=== PATIENT | male | born 1955 | race Caucasian/White ===

== ENCOUNTER → 2017-08-21 | Outpatient (REF) ==
[2017-08-21 10:09] LABS: THYROID STIMULATING HORMONE 2.86 uIU/mL (0.465-4.680)
== END ==
LOC: ZLAB.WCH 09:22
PROVIDERS: Internal Medicine
DX: Z01.89 Encounter for other specified special examinations (principal)

== ENCOUNTER → 2017-09-28 | Outpatient (REF) ==
[2017-09-28 18:52] LABS: PRE ALBUMIN 27.4 mg/dL (17.6-36.0)
[2017-09-28 19:16] LABS: THYROID STIMULATING HORMONE 2.46 uIU/mL (0.465-4.680)
== END ==
LOC: ZLAB.WCH 18:17
PROVIDERS: Internal Medicine
DX: Z01.89 Encounter for other specified special examinations (principal)

== ENCOUNTER → 2017-10-04 | Outpatient (CLI) | payer SELFPAY | LOC: COL.VAS 09-27 11:15 | DX: Z01.810 Encounter for preprocedural cardiovascular examination (principal); T81.89XA Other complications of procedures, not elsewhere classified, initial encounter; R06.00 Dyspnea, unspecified; I08.1 Rheumatic disorders of both mitral and tricuspid valves ==

== ENCOUNTER → 2017-12-28 | Outpatient (REF) | LOC: ZLAB.WCH 08:28 | DX: Z01.89 Encounter for other specified special examinations (principal) ==

== ENCOUNTER → 2018-03-14 | Outpatient (REF) | LOC: ZLAB.WCH 08:38 | DX: Z01.89 Encounter for other specified special examinations (principal) ==

== ENCOUNTER → 2018-03-27 | Outpatient (REF) ==
[2018-03-27 18:21] LABS: IRON,SERUM 27 ug/dL (35-150)
[2018-03-27 18:31] LABS: TOTAL IRON BINDING CAPACITY 175 ug/dL (261-462)
[2018-03-27 18:58] LABS: FERRITIN 530 ng/mL (18-464)
== END ==
LOC: ZLAB.WCH 18:07
PROVIDERS: Internal Medicine
DX: Z01.89 Encounter for other specified special examinations (principal)

== ENCOUNTER 2018-04-05 16:49 | Inpatient (IN) | payer MEDICARE, MEDICAID ==
[~2018-04-05] VITALS: Ht 142.2 cm; Wt 57.1 kg
[2018-04-05] VITALS (230 sets, daily range): BP systolic 105–126; BP diastolic 60–67; PULSE 119–126; TEMP 100.1–101.5; O2SAT 75–98
[2018-04-05 18:56] LABS: HEMOGLOBIN 10.7 g/dl (13.5-18.0); MEAN CELL VOLUME 100 fl (80.0-100.0); MEAN CORPUSCULAR HEMOGLOBIN 29 pg (27.0-31.0); MEAN CORPUSCULAR HGB CONC 30 g/dl (33.0-37.0); MEAN PLATELET VOLUME 11.8 fl (7.4-10.4); PLATELET COUNT 261 K/mm3 (130-400); RED BLOOD COUNT 3.65 M/mm3 (4.20-5.60); REDCELL DISTRIBUTION WIDTH-CV 18.7 % (11.5-14.5)
[2018-04-05 19:03] LABS: HEMATOCRIT 36.3 % (42.0-52.0)
[2018-04-05 19:18] LABS: ALBUMIN 3.1 gm/dL (3.5-5.0); BILIRUBIN,TOTAL 0.6 mg/dL (0.0-1.0); CREATININE, serum 0.89 mg/dL (0.66-1.25); POTASSIUM 3.7 mmol/L (3.4-5.0); TOTAL PROTEIN 6.8 gm/dL (6.4-8.2)
[2018-04-05 19:20] LABS: ANISOCYTOSIS 3+; BAND 55 % (0-10); HYPOCHROMIA 1+; LYMPHOCYTE 3 % (20.0-51.0); MICROCYTOSIS 1+; NEUTROPHILS 41 % (42.0-75.2); PLATELET ESTIMATE NORMAL (NORMAL)
[2018-04-05 19:35] LABS: C-REACTIVE PROTEIN 19.8 mg/dL (0.0-0.9)
[2018-04-05] MEDS ORDERED: AZULFIDINE500 MG/TAB PO (23:21)
[2018-04-05] MEDS ORDERED: CITRUS CALCIUM1 TA1 PO (23:27)
[2018-04-05] MEDS ORDERED: COLACE 100100 MG/CAP PO (23:43)
[2018-04-05] MEDS ORDERED: DESITIN DIAPER120 GM TOP (23:44)
[2018-04-05 23:48] LABS: PH 5 (5-8); SQUAMOUS EPITHELIAL 0-2 /hpf; URINE APPEARANCE Clear; URINE BACTERIA None Seen /hpf; URINE BILIRUBIN Negative (NEGATIVE); URINE BLOOD 1+ (NEGATIVE); URINE COLOR Yellow; URINE GLUCOSE Negative (NEGATIVE); URINE KETONE Negative (NEGATIVE); URINE LEUKOCYTE ESTERASE Negative (NEGATIVE); URINE NITRATE Negative (NEGATIVE); URINE PROTEIN(semi-quant) 1+ (NEGATIVE); URINE UROBILINOGEN Negative (NEGATIVE)
[2018-04-05 23:51] LABS: COLLECTION METHOD CATHETER
[2018-04-06] VITALS (722 sets, daily range): BP systolic 87–103; BP diastolic 53–62; PULSE 98–110; TEMP 99.2–100.9; O2SAT 66–100
[2018-04-06] MEDS ORDERED: DDAVP PO (00:04)
[2018-04-06] MEDS ORDERED: DULCOLAX S10 MG/SUPP RC (00:09)
[2018-04-06] MEDS ORDERED: IPRATROPIUM BROM3 M1 IH ×2 (00:09→00:10)
[2018-04-06] MEDS ORDERED: FENTANYL 25 MCG TD (00:11)
[2018-04-06] MEDS ORDERED: GLUCOSAMINE SU500 M2 PO (00:11)
[2018-04-06] MEDS ORDERED: ROBITUSSIN100 MG/5 M PO (00:12)
[2018-04-06] MEDS ORDERED: NATURAL IRON65 MG PO (00:13)
[2018-04-06] MEDS ORDERED: VIMPAT10 MG/M1 PO (00:14)
[2018-04-06] MEDS ORDERED: LEXAPRO 10MG10 MG PO ×2 (00:14→00:15)
[2018-04-06] MEDS ORDERED: MIRALAX PA17 GM/Dose PO (00:16)
[2018-04-06] MEDS ORDERED: NORCO 325 MG-51 TAB PO (00:16)
[2018-04-06] MEDS ORDERED: PEPCID 20MG TAB20 MG PO (00:17)
[2018-04-06] MEDS ORDERED: SEROQUEL 2525 MG/TAB PO (00:18)
[2018-04-06] MEDS ORDERED: SYNTHROID0.112 MG/T PO (00:18)
[2018-04-06] MEDS ORDERED: TYLENOL 500MG500 MG PO (00:19)
[2018-04-06 10:19] LABS: MEAN CELL VOLUME 100 fl (80.0-100.0); MEAN CORPUSCULAR HGB CONC 29 g/dl (33.0-37.0); MEAN PLATELET VOLUME 11.6 fl (7.4-10.4); PLATELET COUNT 191 K/mm3 (130-400); RED BLOOD COUNT 2.61 M/mm3 (4.20-5.60); REDCELL DISTRIBUTION WIDTH-CV 18.7 % (11.5-14.5)
[2018-04-06 10:23] LABS: HEMATOCRIT 26.2 % (42.0-52.0); HEMOGLOBIN 7.7 g/dl (13.5-18.0); MEAN CORPUSCULAR HEMOGLOBIN 30 pg (27.0-31.0)
[2018-04-06 10:31] LABS: ALBUMIN 2.4 gm/dL (3.5-5.0); BILIRUBIN,TOTAL 0.4 mg/dL (0.0-1.0); CALCIUM 7.4 mg/dL (8.4-10.2); CREATININE, serum 1.06 mg/dL (0.66-1.25); POTASSIUM 3.6 mmol/L (3.4-5.0); TOTAL PROTEIN 5.3 gm/dL (6.4-8.2)
[2018-04-06 11:47] LABS: ANISOCYTOSIS 2+; BAND 53 % (0-10); HYPOCHROMIA 1+; LYMPHOCYTE 8 % (20.0-51.0); NEUTROPHILS 37 % (42.0-75.2); PLATELET ESTIMATE NORMAL (NORMAL)
[2018-04-06 16:53] LABS: PROCALCITONIN 1.75 ng/mL (0.00-0.09)
[2018-04-07] VITALS (299 sets, daily range): BP systolic 68–106; BP diastolic 44–87; PULSE 89–123; TEMP 99.2–102.2; O2SAT 63–99
[2018-04-07 06:09] LABS: BASO # 0.1 (0.0-0.2); BASO % 0.4 % (0.0-2.0); EOS % 0.1 % (0-4.0); GRAN # 15.3 (1.4-6.5); GRAN % 89.2 % (42.2-75.2); LYMPH # 0.5 (1.2-3.4); LYMPH % 3.1 % (20.0-51.0); MEAN CELL VOLUME 103 fl (80.0-100.0); MEAN CORPUSCULAR HGB CONC 28 g/dl (33.0-37.0); MEAN PLATELET VOLUME 11.9 fl (7.4-10.4); MONO % 5.7 % (1.7-9.3); PLATELET COUNT 245 K/mm3 (130-400); RED BLOOD COUNT 2.77 M/mm3 (4.20-5.60); REDCELL DISTRIBUTION WIDTH-CV 18.9 % (11.5-14.5)
[2018-04-07 06:15] LABS: HEMATOCRIT 28.6 % (42.0-52.0); HEMOGLOBIN 8.1 g/dl (13.5-18.0); MEAN CORPUSCULAR HEMOGLOBIN 29 pg (27.0-31.0)
[2018-04-07 06:20] LABS: ALBUMIN 2.6 gm/dL (3.5-5.0); BILIRUBIN,TOTAL 0.3 mg/dL (0.0-1.0); CALCIUM 7.4 mg/dL (8.4-10.2); CREATININE, serum 1.18 mg/dL (0.66-1.25); POTASSIUM 3.6 mmol/L (3.4-5.0); TOTAL PROTEIN 5.8 gm/dL (6.4-8.2)
== END 2018-04-07 13:35 | disposition expired | DRG 871 ==
LOC: ICU 16:49
PROVIDERS: Hospitalist; Nurse Practitioner Family
DX: A41.9 Sepsis, unspecified organism (principal); J96.01 Acute respiratory failure with hypoxia; R65.21 Severe sepsis with septic shock; J69.0 Pneumonitis due to inhalation of food and vomit; Z66 Do not resuscitate; I69.351 Hemiplegia and hemiparesis following cerebral infarction affecting right dominant side; E87.2 Acidosis; E87.0 Hyperosmolality and hypernatremia; E44.0 Moderate protein-calorie malnutrition; Q90.9 Down syndrome, unspecified; G89.29 Other chronic pain; G40.909 Epilepsy, unspecified, not intractable, without status epilepticus; D64.9 Anemia, unspecified
CPT/HCPCS: 99223-AI; 99239; C9254; J1170; J1650; J1720; J1956; J2543; J3370; J7030; J7050; P9047

== ENCOUNTER → 2018-04-05 | Outpatient (REF) ==
[~2018-04-05] MED LIST: AZULFIDINE500 MG/TAB PO; CITRUS CALCIUM1 TA1 PO; COLACE 100100 MG/CAP PO; DDAVP PO; DESITIN DIAPER120 GM TOP; DULCOLAX S10 MG/SUPP RC; FENTANYL 25 MCG TD; GLUCOSAMINE SU500 M2 PO; IPRATROPIUM BROM3 M1 IH; LEXAPRO 10MG10 MG PO; MIRALAX PA17 GM/Dose PO; NATURAL IRON65 MG PO; NORCO 325 MG-51 TAB PO; PEPCID 20MG TAB20 MG PO; ROBITUSSIN100 MG/5 M PO; SEROQUEL 2525 MG/TAB PO; SYNTHROID0.112 MG/T PO; TYLENOL 500MG500 MG PO; VIMPAT10 MG/M1 PO
== END ==
LOC: ZLAB.WCH 16:19
DX: Z01.89 Encounter for other specified special examinations (principal)

== ENCOUNTER → 2018-04-05 | Outpatient (REF) | LOC: ZLAB.WCH 17:25 | DX: Z01.89 Encounter for other specified special examinations (principal) ==